=== PATIENT | female | born 1935 | race Caucasian/White ===

== ENCOUNTER 2017-01-19 12:18 | Inpatient (IN) ==
[2017-01-19] MEDS ORDERED: LEVOFLOXACIN INJ 750 MG in PREMIX 1 EACH IV STA (13:09)
--- NOTE | 2017-01-19 13:38 | XRay Report ---
XR chest 1V portable Indication: SOB/fever Comparison: Chest x-ray dated January 26, 2016 Technique: Single frontal view of the chest. Findings: The cardiomediastinal silhouette is stable in configuration. Cavitary lesion suggested within the right lung apex measuring up to 2.9 cm. Malignancy not excluded. Infection may also be cavitary. Recommend CT chest for further evaluation. Visualized osseous and surrounding soft tissue structures appear grossly unchanged. IMPRESSION: As above. Critical Results: Findings discussed with Dr. Hodge at time of dictation. PROCEDURE INTERPRETED AT [facility] DEPARTMENT OF RADIOLOGY Final Report Signed by: Dr Pio Goodwin
[2017-01-19] MEDS ORDERED: LEVOFLOXACIN INJ 150 ML IV ONE (14:49)
[2017-01-19 14:54] LABS: Basophils % 0.1 % (0.0-0.8); Eosinophils % 0.1 % (0.00-10.9); Hematocrit 30.4 VOL% (35.7-47.0); Hemoglobin 10.2 GM/DL (12.0-16.0); Immature Granulocytes % 0.6 %; Immature Granulocytes Absolute 0.09 #; Lymphocytes # 1.4 10*3/uL (1.4-4.0); Lymphocytes % 9.4 % (21.3-54.2); Mean Corpuscular HGB Conc 33.6 GM/DL (32-36); Mean Corpuscular Hemoglobin 30 PG (27-34); Mean Corpuscular Volume 88.9 FL (87-102); Mean Platelet Volume 9.8 FL (9.6-12.0); Monocytes # 1.2 10*3/uL (0.11-0.8); Monocytes % 7.9 % (1.7-12.7); Neutrophils # 11.9 10*3/uL (1.4-7.4); Neutrophils % 81.9 % (38.7-73.9); Platelet Count 178 T/CUMM (130-400); Red Blood Count 3.42 MC/CUMM (3.8-5.5); Red Cell Distribution Width 12.7 % (9.3-17.3); White Blood Count 14.5 T/CUMM (4-12)
--- NOTE | 2017-01-19 14:57 | CT Report ---
History: Abnormal chest x-ray. Lung nodule Date: 01/19/2017 Study: CT chest with IV contrast Comparison exam: No previous Spiral CT sections were obtained through the lungs following the IV administration of 80 mL of Omnipaque 350 without immediate complication. The CT exam was performed using one or more of the following dose reduction techniques: Automated exposure control, adjustment of the mA and/or kV according to patient size, or use of iterative reconstruction technique. There is no discrete pulmonary mass or confluent pulmonary infiltrate. There are some changes of dependent atelectasis in either lower lung. There is no pleural or pericardial effusion. There is a nonspecific thyroid nodule inferiorly on the left at 7 mm diameter. There is no mediastinal lymphadenopathy. There is no thoracic aortic aneurysm or dissection. There is no pleural or pericardial effusion. There is prominent right sided hydronephrosis of uncertain etiology within the partially visualized upper abdomen. There is a nonobstructing left renal pelvic stone at 11 mm on the left. Prominent degenerative disc disease of the thoracic spine is present. There is prominent degenerative change of either shoulder with joint space narrowing and osteophyte formation. Impression: No evidence of a right lung mass Severe right-sided hydronephrosis of uncertain etiology, incompletely visualized. Left nephrolithiasis Small nonspecific thyroid nodule which is not grossly changed dating back to the May 11, 2011 CT cervical spine PROCEDURE INTERPRETED AT [facility] DEPARTMENT OF RADIOLOGY Final Report Signed by: Dr. Missy Adame
[2017-01-19 15:14] LABS: Alanine Aminotransferase < 9 U/L (13-56); Albumin 2.8 G/DL (3.4-5.0); Alkaline Phosphatase 114 U/L (45-117); Aspartate Amino Transferase 15 U/L (0-37); Blood Urea Nitrogen 22 MG/DL (7-18); Calcium 9.7 MG/DL (8.5-10.1); Glucose 85 MG/DL (74-106); Osmolality,Calculated 269.2 MOS/KG (273-304); Potassium 3.3 MMOL/L (3.5-5.1); Sodium 134 MMOL/L (136-145); Total Protein 5.9 G/DL (6.4-8.3)
[2017-01-19 15:19] LABS: Apearance,Urine CLOUDY (Clear); Bacteria,Urine Many /HPF (Few); Bilirubin,Urine Negative (Negative); Blood, Urine Moderate mg/dL (Negative); Glucose,Urine (UA) Negative (Negative); Ketones,Urine 5 mg/dL (Negative); Mucus,Urine Occasional /LPF (Occasional); Nitrite,Urine Negative (Negative); Protein,Urine 30 MG/DL; RBC,Urine 9 /HPF (0-4); Squamous Epithelial Cell,Urine Occasional /HPF (0-10); Urine Color Yellow (Yellow); Urine Specific Gravity 1.012 (1.001-1.035); WBC,Urine 111 /HPF (0-6)
--- NOTE | 2017-01-19 15:37 | Emergency Department Note ---
Tolu Strickland Mantricia, am scribing for, and in the presence of, Chemo Davis MD 13:17. IRyan Phillip K, MD, personally performed the services described in this documentation, ascribed by Jessi Motley in my presence, and it is both accurate and complete 537 . Arrival - Arrival Chief Complaint: Fever Stated Complaint: fever ED Nursing Triage Note: pt to triage with c/o having fever and some confusion. home health came to see pt today and found that pt had fever of 100.5. family states onset was today. states she has recurrent UTIs. Mode of Arrival: Wheelchair Limitations: No Limitations Source: Family Time Seen by Provider: 01/19/17 12:59 - History of Present Illness HPI Narrative: Pt is an 81 y/o white female arriving to ED with c/o fever that onset 2 days ago and has been constant since then. Daughter state that she nor the home health nurses have been able to get the fever down. Pt's PCP is Dr. Dodson and she has been on vacation. Pt has a Hx of UTI and daughter thinks that this may be the case again. Pt has also been hallucinating occasionally since the fever. She reports that pt has also lost 13 pounds of weight in the last 3 months. No other complaints were reported to ED. Onset (ago): day(s) Consistency: constant Allergies/Adverse Reactions: Allergies Allergy/AdvReac Type Severity Reaction Status Date / Time morphine AdvReac Severe Organs Verified 01/19/17 12:42 Shut Down bupropion [From Wellbutrin] AdvReac Intermediate Confusion/Swelling Verified 12:42 Feet & Legs Home Medications: Home Medications Medication Instructions Recorded Confirmed Type Cholecalciferol (Vitamin D3) 2,000 unit PO BEDTIME 02/17/15 01/19/17 History [Vitamin D3] Donepezil [Aricept] 10 mg PO BEDTIME 02/17/15 01/19/17 History Duloxetine HCl [Cymbalta] 60 mg PO QAM 02/17/15 01/19/17 History DULoxetine [Cymbalta] 30 mg PO BEDTIME 10/08/15 01/19/17 History Lubiprostone [Amitiza] 8 mcg PO BID 01/26/16 01/19/17 History Tramadol HCl [Tramadol Tab] 100 mg PO DAILY W/BREAKFAST 01/26/16 01/19/17 History Tramadol HCl [Tramadol Tab] 50 mg PO BEDTIME 02/06/16 01/19/17 History Brexpiprazole [Rexulti] 3 mg PO BEDTIME 05/18/16 01/19/17 History Bisoprol/Hydrochlorothiazide 1 each PO BID 07/07/16 01/19/17 History [Bisoprolol-Hctz 10-6.25 mg Tab] Memantine [Namenda] 10 mg PO QAM 07/07/16 01/19/17 History Nitrofurantoin Macrocrystal 50 mg PO BEDTIME 07/07/16 01/19/17 History [Nitrofurantoin] Carbidopa/Levodopa 25-100 [Sinemet 1 tablet PO QID 01/19/17 01/19/17 History 25-100] Review of System - Review of System 12 point system: reviewed and no additional remarkable complaints except as stated - Review of System Constitutional: Present: fever. 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 DR ESPARZA) Psychological: History of: Anxiety Disorders, Depression (cymbalta) Neurology: History of: Dementia No history of: Seizures HEENT: History of: Ear Problem (hearing aids), Eye Problem (GLASSES) Rheumatology: History of;: Rheumatoid Arthritis Genitourinary: History of: Kidney Stones, Recurring Urinary Tract Infections Gastrointestinal: History of: Gastrointestinal Bleed, Hemorrhoids (INTERNAL AND EXTERNAL), GI Problems (CHRONIC CONSTIPATION) Musculoskeletal: History of: Back/Neck Problems (lumbar spinal stenosis), Degenerative Disk Disease, Musculoskeletal Problems (TORN ROTATOR CUFF TO LEFT SHOULDER-NO SURGERY) Hematology: History of: Clotting Problems (BLOOD CLOT WITH FILTER PLACED TO LEFT HIP) Other: History of: Anaphylaxis (MORPHINE) - Surgical History Cardiac Surgeries: Sugical HX of: Cardiac Catheterization HEENT Surgeries: Surgical HX of: Eye Surgery (cataract surgery) Abdominal Surgeries: Surgical HX of: Colonoscopy Patient denies: Appendectomy, Cholecystectomy Reproductive Surgeries: Surgical HX of;: Dilation and Curettage, Genitourinary Surgery (REMOVAL KIDNEY STONE) Orthopedic Surgeries: Surgical HX of;: Spinal Surgery (SPINAL STENOSIS), Total Hip Replacement (left hip RIGHT HIP) - Family History Family History: Reports;: Family Cancer (breast-daughter), Family Diabetes ( mother), Family Heart Disease (mother-chf), Family Hypertension (family), Family Stroke (grandfather) - Social History Smoking Status: Never smoker Frequency of Alcohol Use: None Type of Drug Use: None Exam Vital Signs: Vital Signs Temperature 100.7 F H 01/19/17 12:37 Pulse Rate 78 01/19/17 12:37 Respiratory Rate 18 01/19/17 12:37 Blood Pressure 116/60 01/19/17 12:37 O2 Sat by Pulse Oximetry 95 01/19/17 12:37 - General General appearance: alert, in no apparent distress - Head Head exam: Present: atraumatic, normocephalic, normal inspection - Eye Eye exam: Present: normal appearance, PERRL, EOMI - ENT ENT exam: Present: normal exam, normal oropharynx, mucous membranes moist, TM's normal bilaterally, normal external ear exam - Neck Neck exam: Present: normal inspection, full ROM, trachea midline. Absent: tenderness - Chest Chest inspection: Present: normal inspection, symmetric chest wall rise. Absent : tenderness - Respiratory Respiratory exam: Present: normal lung sounds bilaterally - Cardiovascular Cardiovascular exam: Present: regular rate, irregular rhythm, normal heart sounds - Abdominal Exam Abdominal exam: Present: soft, normal bowel sounds. Absent: distention, tenderness, guarding, rebound - Extremities Exam Extremities exam: Present: normal inspection, full ROM, normal capillary refill. Absent: tenderness - Back Exam Back exam: Present: normal inspection, full ROM. Absent: tenderness - Expanded Neurological Exam Patient oriented to: Present: person, place Speech: Present: fluid speech Cranial nerves: EOM function (II, III, IV, ): Normal, facial sensation (V): Normal, facial palsy (VII): Normal, gag reflex (IX): Normal, spinal accessory function (XI): Normal, tongue deviation (XII): Normal - Psychiatric Psychiatric exam: Present: normal affect, normal mood - Skin Skin exam: Present: warm, dry, intact, normal color Course Course Narrative: Patient discussed with the hospitalist. Results - Labs CBC & BMP: 01/19/17 14:26 01/19/17 14:26 Lab Results: I have reviewed the patients labs - Diagnostic Findings Procedure: Chest x-ray: report reviewed by me (Possible cavitary lesion right upper lobe, suggest CT scan), CT - chest: report reviewed by me (CT scan of the chest reveals no cavitary lesion in the right upper lobe. It does however show a large amount of hydronephrosis of the right kidney and also a large stone in the left kidney.) Disposition Clinical Impression: Urinary tract infection, Hydronephrosis, right Case discussed with: patient, patient's family Disposition: Still a Patient Condition: Guarded Additional Instructions: Admit to the hospitalist.
--- NOTE | 2017-01-19 15:54 | EKG Report ---
Stationary ECG Study [facility] ER Test Date: 01/19/2017 3:49:19 PM Pat Name: BERNARDO JORDAN Department: Room: Gender: F [employer]ctor: : 1935 Requested by: Chemo Zarate Order Number: [id number] Reading MD: IGLESIA BUSCH Intervals [place] Rate: 71 P: 32 NE: 214 QRS: 44 QRSD: 96 T: 90 QT: 444 QTc: 466 Interpretive Statements SINUS RHYTHM WITH BORDERLINE PROLONGED NE INTERVAL Electronically Signed On 01-20-17 08:31:31 CDT by IGLESIA BUSCH [email or web address]
[2017-01-19] MEDS ORDERED: ACETAMINOPHEN 325 MG TABLET PO PRN (16:11)
--- NOTE | 2017-01-19 16:25 | Hospitalist History & Physical ---
Assessment and Plan (1) Systemic inflammatory response syndrome Status: Acute Current Visit: Yes (2) Hypokalemia Status: Acute Current Visit: Yes (3) Confusion Status: Acute Current Visit: No (4) Urinary tract infection Status: Acute Current Visit: Yes (5) Hydronephrosis, right Status: Acute Assessment and plan: Our plan for this patient will be admission to our service. We will put her on IV antibiotics. Will consult urology. I am going to get a renal ultrasound to further characterize this hydronephrosis. Patient does not appear toxic. Will continue home meds as appropriate. Provide maintenance fluids for this patient. Replete potassium. Current Visit: Yes History of Present Illness Chief complaint: Fever and confusion History of present illness: Ms. Acevedo is a 81 year old female with past medical history significant for spinal stenosis, chronic back pain, frequent constipation, dementia, arthritis who presents to our ER with a complaint of running fever 3 days. It is been a low-grade fever according to her family. She went to Dr. Stallworth's office is follow-up for her chronic pain. No procedures were done at that time. He was to get refills on her tramadol prescriptions. Patient's family reports that she is really been confused. She is on Macrobid for chronic urinary tract infections. Patient was found to have urinary tract infection. She had a chest x-ray that showed a possible cavitary lesion. She had a CT scan of her chest which revealed hydronephrosis on 1 of her kidneys. I was consulted to admit her. Home Medications Medication Instructions Recorded Confirmed Type Cholecalciferol (Vitamin D3) 2,000 unit PO BEDTIME 02/17/15 01/19/17 History [Vitamin D3] Donepezil [Aricept] 10 mg PO BEDTIME 02/17/15 01/19/17 History Duloxetine HCl [Cymbalta] 60 mg PO QAM 02/17/15 01/19/17 History DULoxetine [Cymbalta] 30 mg PO BEDTIME 10/08/15 01/19/17 History Lubiprostone [Amitiza] 8 mcg PO BID 01/26/16 01/19/17 History Tramadol HCl [Tramadol Tab] 100 mg PO DAILY W/BREAKFAST 01/26/16 01/19/17 History Tramadol HCl [Tramadol Tab] 50 mg PO BEDTIME 02/06/16 01/19/17 History Brexpiprazole [Rexulti] 3 mg PO BEDTIME 05/18/16 01/19/17 History Bisoprol/Hydrochlorothiazide 1 each PO BID 07/07/16 01/19/17 History [Bisoprolol-Hctz 10-6.25 mg Tab] Memantine [Namenda] 10 mg PO QAM 07/07/16 01/19/17 History Nitrofurantoin Macrocrystal 50 mg PO BEDTIME 07/07/16 01/19/17 History [Nitrofurantoin] Carbidopa/Levodopa 25-100 [Sinemet 1 tablet PO QID 01/19/17 01/19/17 History 25-100] Allergies Allergy/AdvReac Type Severity Reaction Status Date / Time morphine AdvReac Severe Organs Verified 01/19/17 12:42 Shut Down bupropion [From Wellbutrin] AdvReac Intermediate Confusion/Swelling Verified 12:42 Feet & Legs Medical,Surgical,& Family Hx - Medical History Cardio: History of: Hypertension, Cardiovascular Problems (HX CARDIAC ARREST FROM MORPHINE DR ESPARZA) Psychological: History of: Anxiety Disorders, Depression (cymbalta) Neurology: History of: Dementia No history of: Seizures HEENT: History of: Ear Problem (hearing aids), Eye Problem (GLASSES) Rheumatology: History of;: Rheumatoid Arthritis Genitourinary: History of: Kidney Stones, Recurring Urinary Tract Infections Gastrointestinal: History of: Gastrointestinal Bleed, Hemorrhoids (INTERNAL AND EXTERNAL), GI Problems (CHRONIC CONSTIPATION) Musculoskeletal: History of: Back/Neck Problems (lumbar spinal stenosis), Degenerative Disk Disease, Musculoskeletal Problems (TORN ROTATOR CUFF TO LEFT SHOULDER-NO SURGERY) Hematology: History of: Clotting Problems (BLOOD CLOT WITH FILTER PLACED TO LEFT HIP) Other: History of: Anaphylaxis (MORPHINE) - Surgical History Cardiac Surgeries: Sugical HX of: Cardiac Catheterization HEENT Surgeries: Surgical HX of: Eye Surgery (cataract surgery) Abdominal Surgeries: Surgical HX of: Colonoscopy Patient denies: Appendectomy, Cholecystectomy Reproductive Surgeries: Surgical HX of;: Dilation and Curettage, Genitourinary Surgery (REMOVAL KIDNEY STONE) Orthopedic Surgeries: Surgical HX of;: Spinal Surgery (SPINAL STENOSIS), Total Hip Replacement (left hip RIGHT HIP) - Family History Family History: Reports;: Family Cancer (breast-daughter), Family Diabetes ( mother), Family Heart Disease (mother-chf), Family Hypertension (family), Family Stroke (grandfather) - Social History Smoking Status: Never smoker Frequency of Alcohol Use: None Type of Drug Use: None 12 point system: reviewed and no additional remarkable complaints except as stated Exam - Constitutional Vitals: Period Temp Pulse Resp BP Sys/Naylor Pulse Ox Last 24 Hr 100.7 F-100.7 F 78-78 17-18 116-116/60-60 95 General appearance: normal weight - Head Head exam: Present: normal inspection - Eye Eye exam: Present: EOMI Pupils: Present: RUSSELL - ENT ENT exam: Present: normal exam - Neck Neck exam: Present: normal inspection - Respiratory Respiratory exam: Present: clear to auscultation bilaterally - Cardiovascular Cardiovascular exam: Present: regular rate and rhythm - GI/Abdominal GI/Abdominal exam: Present: normal bowel sounds - Extremities Exam Extremities exam: Present: normal inspection - Back Exam Back exam: Present: normal inspection - Neurological Exam Neurological exam: Present: alert - Psychiatric Psychiatric exam: Present: normal affect, normal mood - Skin Skin exam: Present: normal color, warm Results - Labs CBC & BMP: 01/19/17 14:26 01/19/17 14:26
[2017-01-19] MEDS: ENOXAPARIN 40 MG/0.4 ML SYRINGE SUBCUT SCH (17:47)
[2017-01-19] MEDS: CARBIDOPA/LEVODOPA 25-100 MG TABLET PO SCH ×2 (17:47→21:01)
--- NOTE | 2017-01-19 18:36 | Ultrasound Report ---
US renal Bilateral Indication: Hydronephrosis. Comparison: None available. Technique: Multiple longitudinal and transverse real-time sonographic images of the kidneys were obtained. Findings: The right kidney measures 13.4 x 7.1 x 7.5 cm, and the left kidney measures 11.3 x 5.1 x 5.7 cm. There is marked hydronephrosis is noted on the right with patchy echogenicity throughout the collecting system might represent debris or noncalcified stones. The proximal ureter is also markedly dilated measuring up to 1.5 cm. There is no hydronephrosis on the left. Within the central left renal collecting system, a prominent 1.7 cm echogenicity with posterior shadowing is noted near the UPJ, likely representing a large nonobstructing stone. Renal cortical echogenicity is slightly increased bilaterally. Cortical thickness is preserved. The bladder is partially imaged and also demonstrates multifocal scattered echogenic foci which may represent debris. Distal right ureter appears moderately dilated. There is no evidence of surrounding ascites. Ultrasound images were captured and stored. IMPRESSION: Marked hydronephrosis and hydroureter on the right with suggestion of debris within the collecting system. Underlying pyonephrosis is not excluded. Correlation with CT imaging of the abdomen should be considered for further evaluation. No hydronephrosis on the left although a large 1.7 cm probable nonobstructing stone is suggested at the UPJ. Probable debris within the bladder. Correlate with urinalysis. PROCEDURE INTERPRETED AT [facility] DEPARTMENT OF RADIOLOGY Final Report Signed by: José Ross
[2017-01-19] MEDS ORDERED: traMADol 50 MG TABLET PO SCH (21:00)
[2017-01-19] MEDS: LUBIPROSTONE 8 MCG CAPSULE PO SCH (21:01)
[2017-01-19] MEDS: POTASSIUM CHLORIDE INJ 10 MEQ in SODIUM CHLORIDE 0.9% 1,000 ML IV SCH (21:02)
[2017-01-19] MEDS: DULoxetine 30 MG CAPSULE PO SCH (21:02)
[2017-01-19] MEDS: DONEPEZIL 10 MG TABLET PO SCH (21:02)
[2017-01-20 02:59] LABS: Apearance,Urine CLOUDY (Clear); Bacteria,Urine Moderate /HPF (Few); Bilirubin,Urine Negative (Negative); Blood, Urine Moderate mg/dL (Negative); Glucose,Urine (UA) Negative (Negative); Ketones,Urine 5 mg/dL (Negative); Mucus,Urine Occasional /LPF (Occasional); Nitrite,Urine Negative (Negative); Protein,Urine Negative; RBC,Urine 7 /HPF (0-4); Urine Color Yellow (Yellow); Urine Specific Gravity 1.029 (1.001-1.035); Urine Urobilinogen < 2.0 EU/DL (0.2-1.0); WBC,Urine 45 /HPF (0-6)
[2017-01-20 06:07] LABS: Basophils % 0.1 % (0.0-0.8); Eosinophils % 0.2 % (0.00-10.9); Hemoglobin 9.4 GM/DL (12.0-16.0); Immature Granulocytes % 0.4 %; Immature Granulocytes Absolute 0.04 #; Lymphocytes # 1.1 10*3/uL (1.4-4.0); Lymphocytes % 10.7 % (21.3-54.2); Mean Corpuscular HGB Conc 32.4 GM/DL (32-36); Mean Corpuscular Hemoglobin 29 PG (27-34); Mean Corpuscular Volume 89.5 FL (87-102); Mean Platelet Volume 9.3 FL (9.6-12.0); Monocytes # 0.8 10*3/uL (0.11-0.8); Monocytes % 7.8 % (1.7-12.7); Neutrophils # 8.1 10*3/uL (1.4-7.4); Neutrophils % 80.8 % (38.7-73.9); Platelet Count 216 T/CUMM (130-400); Red Blood Count 3.24 MC/CUMM (3.8-5.5); Red Cell Distribution Width 12.7 % (9.3-17.3)
[2017-01-20 06:35] LABS: Calcium 9.7 MG/DL (8.5-10.1); Osmolality,Calculated 274.8 MOS/KG (273-304)
[2017-01-20] MEDS ORDERED: traMADol 50 MG TABLET PO SCH (08:00)
[2017-01-20] MEDS: CARBIDOPA/LEVODOPA 25-100 MG TABLET PO SCH ×4 (08:05→21:18)
[2017-01-20] MEDS: DULoxetine 30 MG CAPSULE PO SCH (08:05)
[2017-01-20] MEDS: MEMANTINE 10 MG TABLET PO SCH (08:05)
--- NOTE | 2017-01-20 08:07 | Urology Consultation ---
History of Present Illness - Data of Consult Consult date: 01/20/17 - Consult Narrative History of present illness: Ms. Acevedo is a 81 year old female This 81-year-old white female was seen in consultation because of hydronephrosis found on ultrasound. The patient is a poor historian but apparently has been treated by her family doctor for urinary tract infection but not responding. She was seen in the emergency room and she was found to have slight elevation of her white count pyuria on urinalysis and an ultrasound shows a possible stone in the left kidney and hydronephrosis on the right side. She is complaining of back pain but she does not say that this localizes to the right side. Her preliminary urine culture is positive with gram-negative rods and she has a Patel in at the present time. Going recommend that we start her evaluation with a renal colic CT and a KUB. CC: Serina Chowdhury MD - Home Medications and Allergies Home Medications: Home Medications Medication Instructions Recorded Confirmed Type Cholecalciferol (Vitamin D3) 2,000 unit PO BEDTIME 02/17/15 01/19/17 History [Vitamin D3] Donepezil [Aricept] 10 mg PO BEDTIME 02/17/15 01/19/17 History Duloxetine HCl [Cymbalta] 60 mg PO QAM 02/17/15 01/19/17 History DULoxetine [Cymbalta] 30 mg PO BEDTIME 10/08/15 01/19/17 History Lubiprostone [Amitiza] 8 mcg PO BID 01/26/16 01/19/17 History Tramadol HCl [Tramadol Tab] 100 mg PO DAILY W/BREAKFAST 01/26/16 01/19/17 History Tramadol HCl [Tramadol Tab] 50 mg PO BEDTIME 02/06/16 01/19/17 History Brexpiprazole [Rexulti] 3 mg PO BEDTIME 05/18/16 01/19/17 History Bisoprol/Hydrochlorothiazide 1 each PO BID 07/07/16 01/19/17 History [Bisoprolol-Hctz 10-6.25 mg Tab] Memantine [Namenda] 10 mg PO QAM 07/07/16 01/19/17 History Nitrofurantoin Macrocrystal 50 mg PO BEDTIME 07/07/16 01/19/17 History [Nitrofurantoin] Carbidopa/Levodopa 25-100 [Sinemet 1 tablet PO QID 01/19/17 01/19/17 History 25-100] Allergies/Adverse Reactions: Allergies Allergy/AdvReac Type Severity Reaction Status Date / Time morphine AdvReac Severe Organs Verified 01/19/17 12:42 Shut Down bupropion [From Wellbutrin] AdvReac Intermediate Confusion/Swelling Verified 12:42 Feet & Legs Exam - Constitutional Vitals: Period Temp Pulse Resp BP Sys/Naylor Pulse Ox Last 24 Hr 97.0 F-100.7 F 65-83 16-20 107-131/57-76 82-100 Results - Labs CBC & BMP: 01/20/17 05:47 01/20/17 05:47
[2017-01-20] MEDS: LUBIPROSTONE 8 MCG CAPSULE PO SCH ×2 (08:08→21:18)
--- NOTE | 2017-01-20 09:39 | XRay Report ---
Exam: XR KUB Date: 01/20/2017 8:07 AM Comparison: 02/17/2015, CT 01/20/2017 Indication: Possible ureteral stone Technique:[Supine abdomen] Findings: Nonobstructed bowel gas pattern. Stable IVC filter with prior bilateral hip replacement. Faint probable renal calculi. 7 mm right ureteral calculus projecting in the mid sacral location. Arterial calcifications with degenerative changes and stable minimal scoliosis. Impression: Nonobstructed bowel gas pattern. Faint renal calculi with 7 mm distal right ureteral calculus projecting mid sacral location. Status post bilateral hip replacement. PROCEDURE INTERPRETED AT [facility] DEPARTMENT OF RADIOLOGY Final Report Signed by: Dr. Dafne Cunha
[2017-01-20] MEDS: POTASSIUM CHLORIDE INJ 10 MEQ in SODIUM CHLORIDE 0.9% 1,000 ML IV SCH (10:47)
[2017-01-20] MEDS: PIPERACILLIN/TAZOBACTAM 3,375 MG in SODIUM CHLORIDE 0.9% 100 ML IV SCH ×2 (12:06→21:17)
--- NOTE | 2017-01-20 12:24 | CT Report ---
Referring physician: Serina Chowdhury MD EXAM: CT abdomen and pelvis without contrast DATE: 01/20/2017 COMPARISON: Renal ultrasound 01/19/2017, CT chest 01/19/2017 REASON: Right hydronephrosis TECHNIQUE: Axial images of the abdomen and pelvis were obtained without the use of contrast. Coronal and sagittal reformatted images were also provided. Total DLP is 273.80 mGy*cm. FINDINGS: Atelectasis/infiltration/scarring at the visualized lung bases especially in the right lower lobe. The liver is normal in size with calcified granuloma. No dilated ducts or calcified gallstones. The spleen, pancreas and adrenal glands have an unremarkable appearance. Retained contrast in the urinary tract from the CT the previous day. Enlargement of the right kidney with severe right hydronephrosis. The ureter is dilated to the level of a 7 mm right ureteral calculus projecting in the mid sacral location. Retained contrast in the left kidney obscures the 11 mm calculus noted in the left renal pelvis. No left hydronephrosis or obvious left ureteral calculus. Calcification in the wall of the nondilated abdominal aorta with no adjacent adenopathy. IVC filter. No dilatation of the small bowel. Diverticulosis of the colon with increased fecal material especially in the rectal location. No evidence of definite diverticulitis, free air, or free fluid. Appendix is suboptimally demonstrated. Very limited evaluation of the pelvis due to streak artifact from the bilateral hip replacement. Patel catheter in decompressed urinary bladder. Degenerative changes are noted with minimal dextroscoliosis of the lumbar spine. IMPRESSION: Retained contrast and urinary tract from the CT of the previous day. 7 mm distal right ureteral calculus projecting in the mid sacral location with severe right hydronephrosis. 11 mm left renal calculus projecting in the renal pelvis with no significant hydronephrosis. Minimal atelectasis/infiltration/scarring at the visualized lung bases. Diverticulosis of the colon with increased fecal material consistent with constipation. Limited evaluation of the pelvis due to streak artifact from bilateral hip replacements. Patel catheter in the decompressed urinary bladder. IVC filter with diffuse arterial calcifications. The CT exam was performed using one or more of the following dose reduction techniques: Automated exposure control and adjustment of the mA and/or kV according to patient size. PROCEDURE INTERPRETED AT [facility] DEPARTMENT OF RADIOLOGY Final Report Signed by: Dr. aDfne Cunha
--- NOTE | 2017-01-20 16:45 | Hospitalist Progress Note ---
Hospitalist: Subjective Interval history: Pt sleepy. Denies abd pain. Decreased oral intake. Temp curve improving. Blood culture +GNR. Exam - Constitutional Vitals: Period Temp Pulse Resp BP Sys/Naylor Pulse Ox Last 24 Hr 97.0 F-99.1 F 65-83 16-20 107-131/57-76 82-100 Exam: Sleepy but arousable, NAD RRR no M CTAB nonlabored Soft, NT, ND, +BS Warm no c/c/e Results - Labs CBC & BMP: 01/20/17 05:47 01/20/17 05:47 - Impressions (1) Sepsis due to GNR UTI/ acute complicated cystitis with right sided hydronephrosis with GNR bacteremia Status: Acute Current Visit: Yes - Cont IV Levaquin and add Zosyn. F/U Blood and urine cultures. Repeat cultures ordered - IVF - urology following. F/U CT abd and KUB (2) Hypokalemia Status: Acute Current Visit: Yes - replace. Recheck. Check mg (3) Acute metabolic/ toxic encephalopathy likely due to infection in a patient with known dementia Status: Acute Current Visit: No - (4) Hydronephrosis, right Status: Acute Assessment and plan: Renal U/S ordered Current Visit: Yes - Renal ultrasound showed " Marked hydronephrosis and hydroureter on the right with suggestion of debris within the collecting system. Underlying pyonephrosis is not excluded. Correlation with CT imaging of the abdomen should be considered for further evaluation. No hydronephrosis on the left although a large 1.7 cm probable nonobstructing stone is suggested at the UPJ. Probable debris within the bladder. Correlate with urinalysis." - CT abd/ KUB ordered. F/u results (5) Spinal stenosis/ chronic back pain, - Given level of sedation, we will hold scheduled pain medication for now until mental status improves. D/W interior plant caretaker, nurse and pt. All questions answered . DVT prophylaxis- Lovenox
[2017-01-20] MEDS ORDERED: POTASSIUM CHLORIDE 20 MEQ TABLET PO ONE (16:46)
[2017-01-20] MEDS: LEVOFLOXACIN INJ 500 MG in PREMIX 1 EACH IV SCH (16:47)
[2017-01-20] MEDS: ENOXAPARIN 40 MG/0.4 ML SYRINGE SUBCUT SCH (21:18)
[2017-01-20] MEDS: DONEPEZIL 10 MG TABLET PO SCH (21:18)
[2017-01-21 05:24] LABS: Basophils % 0.1 % (0.0-0.8); Eosinophils % 0.4 % (0.00-10.9); Hematocrit 27.8 VOL% (35.7-47.0); Immature Granulocytes % 0.6 %; Immature Granulocytes Absolute 0.04 #; Lymphocytes # 0.9 10*3/uL (1.4-4.0); Lymphocytes % 13.5 % (21.3-54.2); Mean Corpuscular HGB Conc 32.4 GM/DL (32-36); Mean Corpuscular Hemoglobin 29 PG (27-34); Mean Corpuscular Volume 90.6 FL (87-102); Mean Platelet Volume 8.7 FL (9.6-12.0); Monocytes # 0.8 10*3/uL (0.11-0.8); Monocytes % 11.1 % (1.7-12.7); Neutrophils % 74.3 % (38.7-73.9); Platelet Count 209 T/CUMM (130-400); Red Blood Count 3.07 MC/CUMM (3.8-5.5); Red Cell Distribution Width 12.8 % (9.3-17.3); White Blood Count 6.8 T/CUMM (4-12)
[2017-01-21] MEDS: PIPERACILLIN/TAZOBACTAM 3,375 MG in SODIUM CHLORIDE 0.9% 100 ML IV SCH ×2 (05:39→15:26)
[2017-01-21 05:47] LABS: Albumin 2.3 G/DL (3.4-5.0); Calcium 9.2 MG/DL (8.5-10.1); Magnesium 2.2 MG/DL (1.8-2.4); Potassium 3.5 MMOL/L (3.5-5.1)
[2017-01-21 06:00] LABS: Eosinophils 2 % (0-10); Hypochromasia 1+; Lymphocytes 13 % (20-55); Segmented Neutrophils 74 % (50-85); Total Cells Counted 100
--- NOTE | 2017-01-21 07:38 | Urology Progress Note ---
Urology - PN: Subj Interval history: The CT scan shows a 7 mm stone in the right mid ureter with hydronephrosis. The patient had an elevated white count on admission but this is down and she is afebrile. Blood and urine cultures are both positive for gram-negative rods and the final report is pending. Because of the infection and obstruction I recommended we put in a right ureteral stent. The patient is obtunded this morning I am not sure if she got pain medication during the night. We will keep her n.p.o. for possible stent today after medical clearance. Exam - Constitutional Vitals: Period Temp Pulse Resp BP Sys/Naylor Pulse Ox Last 24 Hr 96.3 F-97.8 F 63-89 16-20 101-127/49-65 97-99 Results - Labs CBC & BMP: 01/21/17 05:10 01/21/17 05:10
--- NOTE | 2017-01-21 10:23 | Hospitalist Progress Note ---
Hospitalist: Subjective Interval history: Patient much more awake and alert. She denies any pain. No shortness of breath. No fever. Exam - Constitutional Vitals: Period Temp Pulse Resp BP Sys/Naylor Pulse Ox Last 24 Hr 96.3 F-97.8 F 63-89 16-20 101-127/49-65 97-99 Exam: Awake alert and oriented 2. She is hard of hearing but responds well, NAD RRR no M CTAB nonlabored Soft, NT, ND, +BS Warm no c/c/e Results - Labs CBC & BMP: 01/21/17 05:10 01/21/17 05:10 - Impressions (1) Sepsis due to acute Klebsiella pyelonephritis with right sided hydronephrosis with Klebsiella bacteremia Status: Acute Current Visit: Yes - Will continue IV Levaquin and Zosyn for now until after urological procedure complete. Then can de-escalate antibiotics to Levaquin based on sensitivities. F /U repeat Blood. - IVF - urology following. - CT abd showed " Retained contrast and urinary tract from the CT of the previous day. 7 mm distal right ureteral calculus projecting in the mid sacral location with severe right hydronephrosis. 11 mm left renal calculus projecting in the renal pelvis with no significant hydronephrosis. Minimal atelectasis/infiltration/scarring at the visualized lung bases. Diverticulosis of the colon with increased fecal material consistent with constipation. Limited evaluation of the pelvis due to streak artifact from bilateral hip replacements. Patel catheter in the decompressed urinary bladder. IVC filter with diffuse arterial calcifications." - KUB showed "Nonobstructed bowel gas pattern. Faint renal calculi with 7 mm distal right ureteral calculus projecting mid sacral location. Status post bilateral hip replacement." (2) Hypokalemia Status: Acute Current Visit: Yes - replaced. Mg ok (3) Acute metabolic/ toxic encephalopathy likely due to infection in a patient and pain medication with known dementia- improving Status: Acute Current Visit: No - Cont to monitor and hold neurotropic meds (4) Hydronephrosis, right Status: Acute Assessment and plan: Current Visit: Yes - Renal ultrasound showed " Marked hydronephrosis and hydroureter on the right with suggestion of debris within the collecting system. Underlying pyonephrosis is not excluded. Correlation with CT imaging of the abdomen should be considered for further evaluation. No hydronephrosis on the left although a large 1.7 cm probable nonobstructing stone is suggested at the UPJ. Probable debris within the bladder. Correlate with urinalysis." - CT abd/ KUB reviewed - Urology has plans for cystoscopy and possible stent placement today. NPO for now (5) Spinal stenosis/ chronic back pain, - mental status and LOC much improved today. Will change scheduled pain medication to prn. D/W inspector health care facilities, nurse and pt. All questions answered . DVT prophylaxis- Lovenox Dispo: will likely be hospitalized 4-5 days due to need for repeat blood culture / sepsis treatment
[2017-01-21] MEDS ORDERED: traMADol 50 MG TABLET PO PRN ×2 (10:30)
[2017-01-21] MEDS: LEVOFLOXACIN INJ 500 MG in PREMIX 1 EACH IV SCH (11:29)
[2017-01-21] MEDS ORDERED: LIDOCAINE 2% 5 ML VIAL ONE (13:26)
[2017-01-21] MEDS ORDERED: ETOMIDATE 20 MG/10 ML VIAL IV ONE (13:26)
--- NOTE | 2017-01-21 13:58 | Operative Note ---
Date of procedure: 01/21/17 Pre-op diagnosis: Right ureteral stone Post-op diagnosis: same Procedure: Under an adequate preop medication including antibiotics the patient was taken to the cystoscopy room placed on the table in supine position. General anesthesia was administered and the patient was turned into the lithotomy position prepped and draped in the usual manner. A timeout procedure was done. The cystourethroscope was introduced in the bladder and the bladder was examined in routine fashion. The orifices were normal and there were small stone fragments in the bladder that were yellow and this was suggestive of possible uric acid stone. A wedge catheter was placed in the right ureteral orifice and ureteral pyelogram was performed which showed dilatation of the right ureter with a stone in the ureter over the SI joint. The catheter was then removed and a floppy tip guidewire was passed up to the right renal pelvis under fluoroscopic control without difficulty. A 6 [place] by 24 cm double-J stent was passed over the guidewire and the guidewire was removed. The pull string was left attached but was shortened. A KUB showed good position of the stent. A 16 Patel was reinserted left on gravity drainage. The patient tolerated procedure well and returned to the recovery room in good condition. Anesthesia: GETA (Right ureteral stone) Surgeon / Physician: Jeremy Avendaño Estimated blood loss: none Specimens: none sent Condition: stable Disposition: floor Results - Labs CBC & BMP: 01/21/17 05:10 01/21/17 05:10 Discharge Plan - Discharge Medications No Action Donepezil [Aricept] 10 mg PO BEDTIME Duloxetine HCl [Cymbalta] 60 mg PO QAM Cholecalciferol (Vitamin D3) [Vitamin D3] 2,000 unit PO BEDTIME DULoxetine [Cymbalta] 30 mg PO BEDTIME Lubiprostone [Amitiza] 8 mcg PO BID Tramadol HCl [Tramadol Tab] 100 mg PO DAILY W/BREAKFAST Tramadol HCl [Tramadol Tab] 50 mg PO BEDTIME Brexpiprazole [Rexulti] 3 mg PO BEDTIME Memantine [Namenda] 10 mg PO QAM Bisoprol/Hydrochlorothiazide [Bisoprolol-Hctz 10-6.25 mg Tab] 1 each PO BID Nitrofurantoin Macrocrystal [Nitrofurantoin] 50 mg PO BEDTIME Carbidopa/Levodopa 25-100 [Sinemet 25-100] 1 tablet PO QID - Follow Up or Referral - Forms/Instructions
[2017-01-21] MEDS ORDERED: PROMETHAZINE 25 MG/1 ML VIAL IM PRN (14:00)
--- NOTE | 2017-01-21 14:05 | Anesthesia Post-Op ---
Anesthesia Post OP - Post Ansesthetic Evaluation Patient seen in post op: Yes Resp: within normal limits CV: within normal limits Mental: within normal limits Temp: within normal limits [id number]: within normal limits Nausea and Vomiting: within normal limits Pain: within normal limits
[2017-01-21] MEDS ORDERED: fentaNYL 100 MCG/2 ML VIAL ONE (14:09)
[2017-01-21] MEDS ORDERED: SEVOFLURANE 1 UNIT/15 MINUTE INH ONE (14:09)
--- NOTE | 2017-01-21 14:26 | Fluoroscopy Report ---
Exam: [place] retrograde pyelogram Date: 01/21/2017 12:00 AM Comparison: CT abdomen 06/22/2017 Indication: Cystoscopy stent, hydronephrosis Technique:[Fluoroscopy time on 32 seconds documented. 7 images were obtained.] Findings: IVC filter noted with degenerative changes. Bilateral hip replacements. Limited contrast injected into the dilated right ureter. Filling defect in the ureter in the mid sacral location which corresponds to the CT described 7 mm right ureteral calculus. Satisfactory insertion of right ureteral stent. Additional 11 mm left renal pelvis calculus noted. Impression: Right hydronephrosis with 7 mm right ureteral stent projecting in the mid sacral location. Satisfactory insertion of right ureteral stent. 11 mm left renal pelvis calculus. PROCEDURE INTERPRETED AT [facility] DEPARTMENT OF RADIOLOGY Final Report Signed by: Dr. Dafne Cunha
[2017-01-21] MEDS: LUBIPROSTONE 8 MCG CAPSULE PO SCH ×2 (15:14→20:37)
[2017-01-21] MEDS: CARBIDOPA/LEVODOPA 25-100 MG TABLET PO SCH ×3 (15:15→20:37)
[2017-01-21] MEDS: MEMANTINE 10 MG TABLET PO SCH (15:15)
[2017-01-21] MEDS: POTASSIUM CHLORIDE INJ 10 MEQ in SODIUM CHLORIDE 0.9% 1,000 ML IV SCH (17:01)
[2017-01-21] MEDS: DULoxetine 30 MG CAPSULE PO SCH (20:37)
[2017-01-21] MEDS: ENOXAPARIN 40 MG/0.4 ML SYRINGE SUBCUT SCH (20:37)
[2017-01-21] MEDS: DONEPEZIL 10 MG TABLET PO SCH (20:37)
[2017-01-22] MEDS: PIPERACILLIN/TAZOBACTAM 3,375 MG in SODIUM CHLORIDE 0.9% 100 ML IV SCH (03:15)
--- NOTE | 2017-01-22 07:01 | Hospitalist Progress Note ---
Hospitalist: Subjective Interval history: Patient sleeping this a.m. She received pain medication last night and is still resting this morning. She did not wake up to eat breakfast. No fever. Nursing reports no new issues. Caregiver at the bedside denies any new complaints or concerns. Exam - Constitutional Vitals: Period Temp Pulse Resp BP Sys/Naylor Pulse Ox Last 24 Hr 96.3 F-99.2 F 59-87 12-20 114-157/53-78 16-100 Exam: Awake alert and oriented 2. She is hard of hearing but responds well, NAD RRR no M CTAB nonlabored Soft, NT, ND, +BS Warm no c/c/e Results - Labs CBC & BMP: 01/21/17 05:10 01/21/17 05:10 - Impressions (1) Sepsis due to acute Klebsiella pyelonephritis with right sided hydronephrosis with Klebsiella bacteremia Status: Acute Current Visit: Yes - Will continue IV Levaquin. DC Zosyn. F/U repeat Blood. - IVF - urology following. - CT abd showed " Retained contrast and urinary tract from the CT of the previous day. 7 mm distal right ureteral calculus projecting in the mid sacral location with severe right hydronephrosis. 11 mm left renal calculus projecting in the renal pelvis with no significant hydronephrosis. Minimal atelectasis/infiltration/scarring at the visualized lung bases. Diverticulosis of the colon with increased fecal material consistent with constipation. Limited evaluation of the pelvis due to streak artifact from bilateral hip replacements. Patel catheter in the decompressed urinary bladder. IVC filter with diffuse arterial calcifications." - KUB showed "Nonobstructed bowel gas pattern. Faint renal calculi with 7 mm distal right ureteral calculus projecting mid sacral location. Status post bilateral hip replacement." (2) Hypokalemia Status: Acute Current Visit: Yes - replaced. Mg ok (3) Acute metabolic/ toxic encephalopathy likely due to infection in a patient and pain medication with known dementia- improving Status: Acute Current Visit: No - Cont to monitor. Will decrease pain med dose and continue only prn. (4) Hydronephrosis, right s/p cystoscopy and R ureteral stent 01/21 Status: Acute Assessment and plan: Current Visit: Yes - Renal ultrasound showed " Marked hydronephrosis and hydroureter on the right with suggestion of debris within the collecting system. Underlying pyonephrosis is not excluded. Correlation with CT imaging of the abdomen should be considered for further evaluation. No hydronephrosis on the left although a large 1.7 cm probable nonobstructing stone is suggested at the UPJ. Probable debris within the bladder. Correlate with urinalysis." - CT abd/ KUB reviewed - Urology following (5) Spinal stenosis/ chronic back pain, - mental status and LOC much improved today. Cont pain medication to prn. D/W resident care aid, nurse and pt. All questions answered . DVT prophylaxis- Lovenox Dispo: will likely be hospitalized 4-5 days total due to need for repeat blood culture/ sepsis treatment I will be away several days. One of my associates will follow in my absence.
[2017-01-22] MEDS: LEVOFLOXACIN INJ 500 MG in PREMIX 1 EACH IV SCH (09:22)
[2017-01-22] MEDS: LUBIPROSTONE 8 MCG CAPSULE PO SCH ×2 (09:23→20:36)
[2017-01-22] MEDS: MEMANTINE 10 MG TABLET PO SCH (09:23)
[2017-01-22] MEDS: CARBIDOPA/LEVODOPA 25-100 MG TABLET PO SCH ×4 (09:23→20:36)
--- NOTE | 2017-01-22 09:25 | Urology Progress Note ---
Urology - PN: Subj Interval history: The patient has no problems post stent placement. She is afebrile and her white count is normal. Blood and urine cultures were positive for Klebsiella and sensitive to Levaquin which she is on. I plan to treat the right ureteral stone with lithotripsy as an outpatient later when her condition is stable. The stones are faintly visible on x-ray and stones particles in the bladder yesterday suggest possible uric acid stone. Exam - Constitutional Vitals: Period Temp Pulse Resp BP Sys/Naylor Pulse Ox Last 24 Hr 97.0 F-99.2 F 59-87 12-20 113-157/53-78 16-100 Results - Labs CBC & BMP: 01/21/17 05:10 01/21/17 05:10
[2017-01-22] MEDS: DULoxetine 30 MG CAPSULE PO SCH ×2 (09:31→20:36)
[2017-01-22] MEDS ORDERED: traMADol 50 MG TABLET PO PRN ×2 (10:26)
[2017-01-22] MEDS: POTASSIUM CHLORIDE INJ 10 MEQ in SODIUM CHLORIDE 0.9% 1,000 ML IV SCH ×2 (18:40→18:41)
[2017-01-22] MEDS: DONEPEZIL 10 MG TABLET PO SCH (20:36)
[2017-01-22] MEDS: ENOXAPARIN 40 MG/0.4 ML SYRINGE SUBCUT SCH (20:36)
[2017-01-23] MEDS: POTASSIUM CHLORIDE INJ 10 MEQ in SODIUM CHLORIDE 0.9% 1,000 ML IV SCH ×2 (06:34→20:19)
--- NOTE | 2017-01-23 07:36 | Hospitalist Progress Note ---
Assessment and Plan (1) Hydronephrosis, right Status: Acute Current Visit: Yes (2) Sepsis due to Klebsiella Status: Acute Current Visit: Yes (3) Acute pyelonephritis Status: Acute Current Visit: Yes (4) Right nephrolithiasis Status: Acute Current Visit: Yes (5) Chronic back pain greater than 3 months duration Status: Acute Assessment and plan: -Continue IV antibiotic therapy with Levaquin, which the Klebsiella is sensitive to -Continue current pain medications -We will repeat urinalysis during hospitalization to evaluate for improvement of the infection -Neurology consulted, will continue to follow the recommendation, we appreciate your assistance in treatment of this patient -Continue Lovenox for DVT prophylaxis -This patient is improving Current Visit: Yes Hospitalist: Subjective Interval history: The patient is an 81-year-old female admitted to the hospital with sepsis secondary to acute pyelonephritis due to Klebsiella. Patient was also found to have hydronephrosis with a right renal stone during hospitalization. Today she denies any abdominal pain, nausea or vomiting. She is tolerating her diet as well. Exam - Constitutional Vitals: Period Temp Pulse Resp BP Sys/Naylor Pulse Ox Last 24 Hr 97.2 F-98.1 F 73-90 18-20 113-154/53-80 92-96 General appearance: normal weight - Head Head exam: Present: normal inspection. Absent: atraumatic, laceration - Eye Eye exam: Present: EOMI. Absent: conjunctival injection, scleral icterus Pupils: Present: RUSSELL - Neck Neck exam: Present: normal inspection - Respiratory Respiratory exam: Present: clear to auscultation bilaterally. Absent: decreased breath sounds, rales, rhonchi, wheezes - Cardiovascular Cardiovascular exam: Present: regular rate and rhythm. Absent: systolic murmur , tachycardia - GI/Abdominal GI/Abdominal exam: Present: normal bowel sounds, soft. Absent: ascites, guarding, rebound - Extremities Exam Extremities exam: Present: normal inspection. Absent: edema - Neurological Exam Neurological exam: Present: alert, oriented X3 - Expanded Neurological Exam Neurological exam: Absent: ataxia, expressive aphasia Patient oriented to: Present: person, place, time - Psychiatric Psychiatric exam: Present: normal affect - Skin Skin exam: Present: normal color Results - Labs CBC & BMP: 01/21/17 05:10 01/21/17 05:10
[2017-01-23] MEDS: DULoxetine 30 MG CAPSULE PO SCH ×2 (10:19→20:18)
[2017-01-23] MEDS: MEMANTINE 10 MG TABLET PO SCH (10:19)
[2017-01-23] MEDS: LUBIPROSTONE 8 MCG CAPSULE PO SCH ×2 (10:20→20:18)
[2017-01-23] MEDS: LEVOFLOXACIN INJ 500 MG in PREMIX 1 EACH IV SCH (10:20)
[2017-01-23] MEDS: CARBIDOPA/LEVODOPA 25-100 MG TABLET PO SCH ×4 (10:20→20:19)
--- NOTE | 2017-01-23 10:31 | Urology Progress Note ---
Urology - PN: Subj Interval history: The patient is much more alert today. She is tolerating the ureteral stent well. Her urine is clear and on the DC the Patel today. I plan lithotripsy of the right ureteral stone as an outpatient and can possibly do this the end of next week if cleared medically Exam - Constitutional Vitals: Period Temp Pulse Resp BP Sys/Naylor Pulse Ox Last 24 Hr 97.1 F-98.1 F 66-90 18-20 135-154/67-80 92-95 Results - Labs CBC & BMP: 01/21/17 05:10 01/21/17 05:10
[2017-01-23] MEDS: DONEPEZIL 10 MG TABLET PO SCH (20:18)
[2017-01-23] MEDS: ENOXAPARIN 40 MG/0.4 ML SYRINGE SUBCUT SCH (20:18)
[2017-01-24 05:19] LABS: Basophils % 0.3 % (0.0-0.8); Eosinophils # 0.1 10*3/uL (0.0-0.87); Eosinophils % 0.9 % (0.00-10.9); Hematocrit 29.9 VOL% (35.7-47.0); Hemoglobin 9.6 GM/DL (12.0-16.0); Immature Granulocytes % 0.4 %; Immature Granulocytes Absolute 0.03 #; Lymphocytes # 1.5 10*3/uL (1.4-4.0); Lymphocytes % 20.5 % (21.3-54.2); Mean Corpuscular HGB Conc 32.1 GM/DL (32-36); Mean Corpuscular Hemoglobin 28 PG (27-34); Mean Corpuscular Volume 88.5 FL (87-102); Mean Platelet Volume 9.2 FL (9.6-12.0); Monocytes # 0.4 10*3/uL (0.11-0.8); Monocytes % 5.9 % (1.7-12.7); Neutrophils # 5.4 10*3/uL (1.4-7.4); Platelet Count 234 T/CUMM (130-400); Red Blood Count 3.38 MC/CUMM (3.8-5.5); Red Cell Distribution Width 12.8 % (9.3-17.3); White Blood Count 7.5 T/CUMM (4-12)
[2017-01-24 05:53] LABS: Calcium 9.1 MG/DL (8.5-10.1); Osmolality,Calculated 289.6 MOS/KG (273-304); Potassium 3.3 MMOL/L (3.5-5.1)
--- NOTE | 2017-01-24 07:47 | Urology Progress Note ---
Urology - PN: Subj Interval history: Patient's Patel was removed yesterday. It is okay with me to discharge the patient as needed. If cleared medically i will plan treatment with shockwave lithotripsy as an outpatient of this week. Exam - Constitutional Vitals: Period Temp Pulse Resp BP Sys/Naylor Pulse Ox Last 24 Hr 97.1 F-98.0 F 66-89 18-20 117-160/61-86 92-95 Results - Labs CBC & BMP: 01/24/17 04:25 01/24/17 04:25
[2017-01-24] MEDS: CARBIDOPA/LEVODOPA 25-100 MG TABLET PO SCH (08:04)
[2017-01-24] MEDS: LUBIPROSTONE 8 MCG CAPSULE PO SCH (08:04)
[2017-01-24] MEDS: MEMANTINE 10 MG TABLET PO SCH (08:04)
[2017-01-24] MEDS: DULoxetine 30 MG CAPSULE PO SCH (08:04)
[2017-01-24] MEDS: LEVOFLOXACIN INJ 500 MG in PREMIX 1 EACH IV SCH (08:05)
[2017-01-24] MEDS: POTASSIUM CHLORIDE INJ 10 MEQ in SODIUM CHLORIDE 0.9% 1,000 ML IV SCH (08:05)
[2017-01-24 08:11] VITALS: BP 128/68
--- NOTE | 2017-01-24 08:27 | Discharge Summary ---
Hospital Course - Hospital Course Hospital Course: Discharge diagnosis Urinary tract infection with sepsis Hydronephrosis due to nephrolithiasis Chronic back pain The patient presented to the hospital and was found to have urinary infection and right-sided hydronephrosis. She underwent a stent placement, and urine culture grew Klebsiella. She was given IV antibiotics. She improved, but remained weak. She has chronic back pain. She is not going to be discharged, and can resume home health with physical therapy at home. She will have lithotripsy as an outpatient later in the week. Medication reconciliation has been performed. Regular diet. Resume PT. Activity as tolerated. This note was completed using [email or web address] voice recognition software. There may be switchboard receptionist errors as a result. Discharge Plan - Discharge Data Disposition: Home Health Service Condition at Discharge: Stable Discharge Diet: advance to your usual diet Activity: as per physical therapy Hygiene: no restrictions Weight Bearing at Discharge: weight bear as tolerated - Discharge Medications New cephALEXin [Cephalexin] 500 mg PO BID #10 tablet Continue Donepezil [Aricept] 10 mg PO BEDTIME Duloxetine HCl [Cymbalta] 60 mg PO QAM Cholecalciferol (Vitamin D3) [Vitamin D3] 2,000 unit PO BEDTIME DULoxetine [Cymbalta] 30 mg PO BEDTIME Lubiprostone [Amitiza] 8 mcg PO BID Tramadol HCl [Tramadol Tab] 100 mg PO DAILY W/BREAKFAST Tramadol HCl [Tramadol Tab] 50 mg PO BEDTIME Brexpiprazole [Rexulti] 3 mg PO BEDTIME Memantine [Namenda] 10 mg PO QAM Bisoprol/Hydrochlorothiazide [Bisoprolol-Hctz 10-6.25 mg Tab] 1 each PO BID Carbidopa/Levodopa 25-100 [Sinemet 25-100] 1 tablet PO QID Discontinued Nitrofurantoin Macrocrystal [Nitrofurantoin] 50 mg PO BEDTIME - Follow Up or Referral - Forms/Instructions Exam - Constitutional Vitals: Period Temp Pulse Resp BP Sys/Naylor Pulse Ox Last 24 Hr 97.2 F-98.0 F 79-89 18-20 117-160/61-86 92-96 Vital signs are above. She has a soft cardiac murmur. Lungs are clear. No rales or wheezes. Discharge Results Procedures and tests throughout hospitalization: Pending Orders 01/20/17 11:08 Blood Culture Stat 01/24/17 08:00 Urinalysis Routine Labs on day of discharge: Labs from last 24 hours 01/24/17 01/24/17 04:25 04:25 WBC 7.5 RBC 3.38 L Hgb 9.6 L Hct 29.9 L MCV 88.5 MCH 28 MCHC 32.1 RDW 12.8 Plt Count 234 MPV 9.2 L Neut % (Auto) 72.0 Lymph % (Auto) 20.5 L [place] % (Auto) 5.9 Eos % (Auto) 0.9 Baso % (Auto) 0.3 Neut # (Auto) 5.4 Lymph # (Auto) 1.5 [place] # (Auto) 0.4 Eos # (Auto) 0.1 Baso # (Auto) 0.0 Immature Gran % 0.4 Nucleated RBC % 0.0 Immature Gran # 0.03 Nucleated RBCs # 0.00 Sodium 146 H Potassium 3.3 L Chloride 108 H Carbon Dioxide 29 Anion Gap 12.3 BUN 15 Creatinine 0.50 L GFR Calculation 81 BUN/Creatinine Ratio 30.00 H Glucose 76 Calculated Osmolality 289.6 Calcium 9.1 Preliminary micro results at discharge 01/20/17 11:08 Blood Culture - Preliminary Blood No growth at 3 days 01/20/17 11:08 Blood Culture - Preliminary Blood No growth at 3 days DS: Provider Date of admission: 01/19/17 15:52 Primary care physician: Elizabeth Dodson Attending physician on admission: James Nugent MD Consults: 01/19/17 16:11 Consult to Physician [CONS] Routine Comment: Hydronephrosis Consulting Provider: Jeremy Avendaño Consult to Specialist Group: Urology When should Consulting Provider be notified: Now Person Notified: Dr. Avendaño Date Notified: 01/20/17 Time Notified: 07:45 Consult Notification Comment: Made aware on rounds AEB doctor's progress note the office was closed 01/19/17 whenthe pt got to the floor. 01/20/17 11:24 Consult to Occupational Therapy [CONS] Routine Reason for Occupational Therapy: Evaluate and Treat Consult to Physical Therapy [CONS] Routine Reason for Physical Therapy: Evaluate and Treat Discharging clinician: Miguel Banuelos MD Expected date of discharge: 01/24/17
== END 2017-01-24 10:30 | disposition home health service (06) | DRG 871 ==
LOC: N.ED 12:18 → SUATTDRO 15:52 → N.EDINP 15:52 → N.2E 16:13
PROVIDERS: ADMIT Internal Medicine; ATTEND Internal Medicine Geriatric Medicine